=== PATIENT | female | born 1995 | race Hispanic/Latino ===

== ENCOUNTER 2019-11-07 21:23 | Emergency (ER) | payer OTHER ==
[~2019-11-07] VITALS: Ht 149.9 cm; Wt 43.1 kg
[2019-11-07] MEDS ORDERED: IBUPROFEN 400 MG TAB PO ONE (22:00)
--- NOTE | 2019-11-07 22:02 | Emergency Department Note ---
History of Present Illnes History of Present Illness Chief Complaint: Extremity Trauma/Pain History of Present Illness This is a 23 year old female, with no significant past medical history, who presents for evaluation of left ankle pain. Patient states that she was walking down 2 steps to get out of her house last night at approximate 9 PM, when she slipped, twisted her left ankle, and fell to the ground. She denies any other injury, including no head injury. Patient has had some previous injury to the left ankle, but she could not describe exactly what occurred. Patient took one ibuprofen last night, and one today at approximately 3 PM. She also applied ice to the ankle. She is having pain with weightbearing. She denies any numbness, tingling, or left lower extremity weakness. 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 Onset (how long ago): day(s) (1) Location: left ankle Quality: aching Radiation: Reports non-radiation Severity: moderate Onset quality: sudden Duration (how long): day(s) (1) Timing of current episode: constant Progression: unchanged Chronicity: new Context: Reports trauma/injury; Denies recent illness, Denies recent surgery Relieving factors: cold therapy, rest, other (elevation) Exacerbating factors: movement, other (weightbearing) Associated symptoms: Reports denies other symptoms; Denies weakness Treatments prior to arrival: NSAID Past Medical/Family History Physician Review I have reviewed the patient's past medical and family history. Any updates have been documented here. Past Medical History Recent Fever: No Clinical Suspicion of Infectio: No New/Unexplained Change in Ment: No Past Medical History: None Past Surgical History: Hernia Repair Social History Smoking Cessation: Never Smoker Alcohol Use: None Any Illegal Drug Use: No TB Exposure/Symptoms: No Physically hurt or threatened: No Family History Family history of heart diseas: No Other Any Pre-Existing Lines (PICC,: No Is patient up to date on immun: No Review of Systems Review of Systems Constitutional: Reports no symptoms EENTM: Reports no symptoms Cardiovascular: Reports no symptoms Gastrointestinal: Reports no symptoms Musculoskeletal: Reports as per HPI Integumentary: Reports no symptoms Neurological: Reports no symptoms Review of other systems: All other systems negative Physical Exam Related Data Allergies: Coded Allergies: No Known Drug Allergies (Verified Allergy, Unknown, 11/07/19) Triage Vital Signs Vital Signs Date Time Temp Pulse Resp B/P (MAP) Pulse Ox O2 Delivery O2 Flow Rate FiO2 11/07/19 21:29 98.8 84 18 104/61 99 Room Air Vital signs reviewed: Yes Physical Exam CONSTITUTIONAL Constitutional: Present well-developed, Present well-nourished HENT HENT L/R: Present left ext ear normal, Present right ext ear normal EYES Eyes: Reports PERRL, Reports conjunctivae normal NECK Neck: Present ROM normal PULMONARY Pulmonary: Present effort normal, Present breath sounds normal CARDIOVASCULAR Cardiovascular: Present regular rhythm, Present heart sounds normal, Present capillary refill normal, Present normal rate GASTROINTESTINAL GENITOURINARY SKIN Skin: Present warm, Present dry; Absent rash MUSCULOSKELETAL Musculoskeletal: Present tenderness (ttp below the left lateral malleolus, no significant edema, no crepitus, increased pain with dorsiflexion;); Absent ROM normal NEUROLOGICAL Neurological: Present alert, Present oriented x 3, Present no gross motor or sensory deficits; Absent sensory deficit PSYCHOLOGICAL Psychological: Present mood/affect normal, Present judgement normal Results Imaging Imaging results reviewed: Yes Impressions [place] [address] Patient Name: ROMAN SANTIAGO MR #: [id number] : 1995 Age/Sex: 23/F Req #: [id number] [facility] Physician: Ordered by: DIANE WAITE MD Report #: [id number] [facility] Room/Bed: Procedure: [id number] HOPD/ANKLE 3VIEW LT - HOPD Exam Date: 11/07/19 Exam Time: 2204 REPORT STATUS: Signed X-ray left ankle 3 views HISTORY: Pain. COMPARISON: None available. FINDINGS: Bones: No acute displaced fracture. Osseous alignment is within normal limits. Joints: The joint spaces are well-maintained. Soft tissues: The soft tissues appear unremarkable. IMPRESSION: No acute radiographic abnormality. Signed by: Cole Mahajan DO on 11/08/2019 12:41 AM Dictated By: COLE MAHAJAN DO Transcribed By: NILTON on 11/08/1940 COPY TO: DIANE WAITE MD~ Assessment & Plan Medical Decision Making MDM - Elevate the left leg to the level of the heart, to help with pain and swelling. - Apply ice to the left ankle, frequently throughout the next several days, to help with pain and swelling. - Take medication as directed, to help with pain and inflammation. - You may walk, as tolerated, but avoid prolonged standing and extended walking, and to your symptoms subside. - Use the air splint, for the left ankle, anterior pain has resolved. - Follow-up with Orthopedics, if your symptoms worsen or persist, for further evaluation. - Pt given contact information for follow-up with Dr. Hendricks, Orthopedics. Reassessment Reassessment time: 23:15 Reassessment Pt resting comfortably. Received Ibuprofen. Updated patient that xray is still pending. Radiology contacted, and there was some issue with the transmission of the images, so we still do not have a reading. bessy Dong., is working with IT to correct the problem. Assessment & Plan Final Impression: (1) Left ankle sprain (2) Fall Depart Disposition: HOME, SELF-CARE Last Vital Signs Date Time Temp Pulse Resp B/P (MAP) Pulse Ox O2 Delivery O2 Flow Rate FiO2 11/07/19 21:29 98.8 84 18 104/61 99 Room Air Home Meds Active Scripts Naproxen (NAPROXEN) 250 Mg Tablet, 500 MG PO BID for pain, #30 TAB 0 Refills Prov:DIANE WAITE MD 11/08/19 Medications in the ED Ibuprofen 400 mg ONCE ONCE PO ; Start 11/07/19 at 22:00; Stop 11/07/19 at 22:01; Status UNV DIANE WAITE MD Nov 07, 2019 22:02
[2019-11-07] MEDS ORDERED: IBUPROFEN 400 MG TAB ONE (22:39)
--- OUTSIDE RECORDS SUMMARY | 2019-11-07 23:27 | XMS REPORT | Clinical Summary ---
Author Author [facility] ict Organization [facility] ict Address Unknown Phone Unavailable Care Team Providers Care Supervisor Electric Name Role Phone PCP Unavailable Allergies No Known Allergies Medications End Date Status Medication Sig Dispensed Refills Start Date Active traMADol (ULTRAM) 50 mg Take 1 tablet 30 tablet 0 tabletIndications: by mouth 9 Umbilical hernia without every 6 hours obstruction and without as needed for gangrene up to 12 doses for Pain. Additional Information Patient not taking. Reported on 07/17/2019 9:49 AM 07/25/2019 erythromycin (ROMYCIN) 5 Apply 0.25cm 4 g 0 mg/gram (0.5 %) as directed 0 ophthalmic in each eye ointmentIndications: Dry at bedtime eyes, bilateral nightly for 7 days. Active Problems Problem Noted Date Dry eyes, bilateral 07/17/2019 Umbilical hernia without obstruction and without gang gurmeet 12/14/2018 Overview: Added automatically from request for scott singh [id number] Encounters Care Team Description Date Type Specialty Tommy Rivera MD Pain of right hand (Primary Dx) 10/11/2019 Emergency Emergency Medicine Davon Moscoso MD Mojica, Gioconda, MD Dry eyes, bilateral (Primary Dx) 07/17/2019 Office Visit Ophthalmology Andie Mirza PA Gill, Brijesh S, MD Umbilical hernia without obstruction and without gangrene (Primary Dx) 12/14/2018 Office Visit General Surgery Chavo Rene Jr., MD Umbilical hernia without obstruction and without gangrene (Primary Dx) 12/12/2018 Emergency Emergency Medicine after 11/06/2018 Social History Date Tobacco Use Types Packs/Day Years Used Never Smoker Smokeless Tobacco: Never Used Tobacco Cessation: Counseling Given: No Sex Assigned at Date Recorded Not on file Industry Job Start Date Occupation Not on file Not on file Not on file Travel End Travel History Travel Start No recent travel history available. Date Recorded COVID-19 Exposure Response 10/11/2019 11:06 AM CDT In the last month, have you been in contact with No / Unsure someone who was confirmed or suspected to have Coronavirus / COVID-19? Last Filed Vital Signs Reading Time Taken Comments Vital Sign 119/80 10/11/2019 12:58 PM CDT Blood Pressure 80 10/11/2019 12:58 PM CDT Pulse 36.8 C (98.2 F) 10/11/2019 12:58 PM CDT Temperature 18 10/11/2019 12:58 PM CDT Respiratory Rate 99% 10/11/2019 12:58 PM CDT Oxygen Saturation - - Inhaled Oxygen Concentration 41.7 kg (92 lb) 12/14/2018 9:30 AM CDT Weight 152.4 cm (5') 12/14/2018 9:30 AM CDT Height 17.97 12/14/2018 9:30 AM CDT Body Mass Index Plan of Treatment Care Team Description Date Type Specialty General 01/09/2020 Office Visit Ophthalmology Health Maintenance Due Date Last Done Comments Cervical Cancer Scrn (3 11/21/2015 Yrs) IMM Influenza Seasonal 12/21/2019 Oct to May (>/= 19 yrs) Procedures Comments Procedure Name Priority Date/Time Associated Diag nosis XRAY HAND 3 VIEWS MIN STAT 10/11/2019 Pain of right hand 11:54 AM CDT URINE CULTURE COLLECTION STAT 12/12/2018 KIT 9:58 PM CDT RAINBOW DRAW STAT 12/12/2018 9:58 PM CDT URINALYSIS STAT 12/12/2018 9:58 PM CDT URINALYSIS STAT 12/12/2018 9:58 PM CDT BMP POC Routine 12/12/2018 8:44 PM CDT POCT URINE DIPSTICK - STAT 12/12/2018 8:43 PM CDT CBC STAT 12/12/2018 8:41 PM CDT LIPASE STAT 12/12/2018 8:41 PM CDT LIVER PROFILE STAT 12/12/2018 8:41 PM CDT CBC/DIFF STAT 12/12/2018 8:41 PM CDT after 11/06/2018 Results * XRAY HAND 3 VIEWS MIN (10/11/2019 11:54 AM CDT) Specimen Impressions Performed At IMPRESSION: [facility] Unremarkable study of the right hand. Signed By: Therese Cantu MD, 10/11/2019 12:23 PM Narrative Performed At RIGHT HAND SERIES, 3 images. SMS DATE: 10/11/2019 11:54 AM INDICATION: Hand injury COMPARISON: None TECHNIQUE: PA, lateral and oblique radi ographs of the right hand are obtained and submitted for interpretati on. DISCUSSION: There is no fracture or malalignment. No erosive lesion or abnormal sclerosis is identified. Radiocarpal, intercarpal, carpometacarp al, metacarpophalangeal and interphalangeal joint spaces are preser elicia. Surrounding soft tissues demonstrate no abnormalities. Procedure Note Interface, Rad/Mammog In - 10/11/2019 12:28 PM CDT RIGHT HAND SERIES, 3 images. DATE: 10/11/2019 11:54 AM INDICATION: Hand injury COMPARISON: None TECHNIQUE: PA, lateral and oblique radiographs of the right hand are obtained and submitted for interpretation. DISCUSSION: There is no fracture or malalignment. No erosive lesion or abnormal sclerosis is identified. Radiocarpal, intercarpal, carpometacarpal, metacarpophalangeal and interphalangeal joint spaces are preserved. Surrounding soft tissues demonstrate no abnormalities. IMPRESSION IMPRESSION: Unremarkable study of the right hand. Signed By: Therese Cantu MD, 10/11/2019 12:23 PM Performing Organization Address City/[facility] Ph one Number SMS * Urine Culture Collection Kit (12/12/2018 9:58 PM CDT) Hold Specimen [id number] [facility] Specimen Urine Performing Organization Address City/[facility] Ph one Number [facility] [address] [place] [address] * Urinalysis (12/12/2018 9:58 PM CDT) Color Yellow Colorless, Straw, [facility] Yellow Clarity Clear Clear [facility] Spec Ellis, 1.011 1.001 - 1.035 [facility] Ur pH, Ur 7.0 5.0 - 8.0 [facility] Protein, Ur Negative Negative mg/dL [facility] Glucose, Ur Negative Negative mg/dL [facility] Ketone, Ur Negative Negative mg/dL [facility] Bilirubin, Ur Negative Negative mg/dL [facility] Nitrite, Ur Negative Negative [facility] Leukocyte Negative Negative mg/dL [facility] Blood, Ur Negative Negative mg/dL [facility] Urobilinogen, <1.0 <1.0 EU/dL [facility] Ur Specimen Urine Performing Organization Address [facility] Ph one Number [facility] [address] [place] [address] [phone] * POCT BMP POC docked device (12/12/2018 8:44 PM CDT) [facility] Sodium POC 140 136 - 145 mmol/L [facility] Potassium POC 3.6 3.5 - 5.1 mmol/L [facility] Chloride POC 104 98 - 107 mmol/L [facility] TCO2 POC 25 21 - 32 mmol/L [facility] Urea Nitrogen 7 7 - 18 mg/dL [facility] POC Creatinine POC 0.5 (L) 0.6 - 1.3 mg/dL [facility] Glucose POC 100 74 - 106 mg/dL [facility] Ionized Calcium 1.13 (L) 1.15 - 1.29 mmol/L [facility] POC GFR, Estimated >90 >=90 mL/min/1.73 m2 [facility] Specimen Blood, venous Performing Organization Address [facility] Ph one Number [facility] [address] [place], [place] [id number] [phone] * POCT Urine - (12/12/2018 8:43 PM CDT) [facility] Pass Control Negative * CBC/Diff (12/12/2018 8:41 PM CDT) [facility] WBC 5.9 4.5 - 11.0 K/uL [facility] RBC 4.63 4.20 - 5.40 M/uL [facility] Hemoglobin 14.6 12.0 - 16.0 g/dL [facility] Hematocrit 42.2 37.0 - 47.0 % [facility] MCV 91.1 82.0 - 92.0 fL [facility] MCH 31.5 27.0 - 32.0 pg [facility] MCHC 34.6 32.0 - 36.0 g/dL [facility] RDW 39.8 36.4 - 46.3 fL [facility] Platelet 193 150 - 400 K/uL [facility] Mean Platelet 11.0 9.4 - 12.4 fL [facility] Volume Percent NRBC 0.0 % [facility] Neutrophil 45.8 34.0 - 70.0 % [facility] Lymphs 45.8 20.0 - 50.0 % [facility] Monocytes 7.5 5.0 - 12.0 % [facility] Eos 0.5 (L) 0.7 - 5.0 % [facility] Basos 0.2 0.1 - 1.2 % [facility] Immature 0.2 0.0 - 0.5 % [facility] Granulocytes Neutrophils 2.68 1.56 - 6.13 K/uL [facility] (Absolute) Lymphs 2.68 1.18 - 3.74 K/uL [facility] (Absolute) Monocytes(Absol 0.44 (H) 0.24 - 0.36 K/uL [facility] octavia) Eos (Absolute) 0.03 (L) 0.04 - 0.36 K/uL [facility] Baso (Absolute) 0.01 0.01 - 0.08 K/uL [facility] Immature Grans 0.01 0.00 - 0.03 K/uL [facility] (Abs) Absolute NRBC 0.00 K/uL [facility] Specimen Blood Performing Organization Address City/State/Zipcode Ph one Number [facility] [address] [place] [address] [phone] * Liver Profile (12/12/2018 8:41 PM CDT) Total Protein 7.7 6.0 - 8.3 g/dL [facility] Bilirubin, 1.1 0.2 - 1.2 mg/dL [facility] Total Alkaline 75 34 - 104 U/L [facility] Phosphatase AST 18 13 - 39 U/L [facility] Direct 0.2 0.0 - 0.2 mg/dL [facility] Bilirubin ALT 12 7 - 52 U/L [facility] Albumin 4.9 3.7 - 5.3 g/dL [facility] Specimen Blood Performing Organization Address [facility] Ph one Number [facility] [address] [place] [address] * Lipase (12/12/2018 8:41 PM CDT) Lipase 30 11 - 82 U/L [facility] Specimen Blood Performing Organization Address [facility] Ph one Number [facility] [address] [place] [address] after 11/06/2018 Insurance Type Payer Benefit Subscriber ID Effective Phone Address Plan / Dates diet counselor'S COMPENSATION [place] xxxxxxxxx 2019- [address] [address] [place] [address] CIGNA CIGNA xxxxxxxxxxx 2019-P [phone] [address] resent [id number] [place] [address]
--- OUTSIDE RECORDS SUMMARY | 2019-11-07 23:27 | XMS REPORT | Continuity of Care Document ---
Author Author [facility] Organization [facility] Address [address] [place] [address] Phone Unavailable Care Team Providers Care Mill Operator Name Role Phone Miguel CHEN, Zach Attphys Danis CHEN, L Davon Attphys Beryl CHEN, Elvia Attphys Hermes WRIGHT, D Andie Attphys Georgina CHEN, S Gregory Attphys Edgard CHEN, Vahe Tony Attphys Payers Payer Name Policy Type Policy Number Effective Date Expiration Date S ource [employer] [place] [employer] [place] [id number] [address] xxxxxxxxx 2019 00:00:00 [facility] [employer] [facility] [employer] [employer] [employer] EMPLOYEE PLANxxxxxxxxxxx [id number][address] [address] xxxxxxxxxxx 2019 00:00:00 [facility] Problems Condition Name Condition Details Condition Category Status Onset Date Resolution Date Last Treatment Date Treating Clinician Comments Source Dry eyes, bilateral Dry eyes, bilateral Disease Active 2019-07-17 00:00 :00 [facility] Umbilical hernia without obstruction and without gangr audrey Umbilical hernia without obstruction and without gangrene Disease Active 2018-12-14 00:00: 00 Overview: Added automatically from request for surgery [id number] [facility] Allergies, Adverse Reactions, Alerts This patient has no known allergies or adverse reactions. Social History Social Habit Start Date Stop Date Quantity Comments Source Sex Assigned At [facility] Exposure to SARS-CoV-2 (event) Not sure [facility] Smoking Status Start Date Stop Date Source Never smoker [facility] Medications Ordered Medication Name Filled Medication Name Start Date Stop Da te Current Medication? Ordering Clinician Indication Dosage Frequency Signature (SIG) Comments Components Source erythromycin (ROMYCIN) 5 mg/gram (0.5 %) ophthalmic ointment 2019-07-17 00:00:00 2019-07-25 23:59:00 No Dry eyes, bilateral Apply 0.25cm as directed in each eye at bedtime nightly for 7 days. [facility] traMADol (ULTRAM) 50 mg tablet 2018-12-14 00:00:00 Yes Umbilical hernia without obstruction and without gangrene 50mg Take 1 tablet by mouth every 6 hours as needed for up to 12 doses for Pain. [facility] Vital Signs Vital Name Observation Time Observation Value Comments Source Systolic blood pressure 2019-10-11 12:58:00 119 mm[Hg] [facility] Diastolic blood pressure 2019-10-11 12:58:00 80 mm[Hg] [facility] Heart rate 2019-10-11 12:58:00 80 /min [facility] Body temperature 2019-10-11 12:58:00 36.78 Monse Duong is [facility] Respiratory rate 2019-10-11 12:58:00 18 /min [facility] Oxygen saturation in Arterial blood by Pulse oximetry 10-10 12:58:00 99 /min [facility] Body height 2018-12-14 09:30:00 152.4 cm [facility] Body weight 2018-12-14 09:30:00 41.731 kg [facility] BMI 2018-12-14 09:30:00 17.97 kg/m2 [facility] Procedures Procedure Date / Time Performed Performing Clinician Sourc e XRAY HAND 3 VIEWS MIN 2019-10-11 11:54:34 Colette Li [facility] URINALYSIS 2018-12-12 21:58:00 Andie Mirza [facility] URINALYSIS 2018-12-12 21:58:00 Andie Mirza [facility] RAINBOW DRAW 2018-12-12 21:58:00 Chavo Rene [facility] URINE CULTURE COLLECTION KIT 2018-12-12 21:58:00 Chavo Rene [facility] BMP POC 2018-12-12 20:44:00 Unknown, Provider [facility] POCT URINE DIPSTICK - 2018-12-12 20:43:00 Beena Duncan [facility] CBC/DIFF 2018-12-12 20:41:00 Janette Duncan [facility] LIVER PROFILE 2018-12-12 20:41:00 Janette Duncan [facility] LIPASE 2018-12-12 20:41:00 Janette Duncan [facility] CBC 2018-12-12 20:41:00 Janette Duncan [facility] Plan of Care Planned Activity Planned Date Details Comments Source Future Scheduled Test 2019-12-21 00:00:00 IMM Influenza Seas onal Dec to May (>/= 19 yrs) [code = IMM Influenza Seasonal Dec to May (>/= 19 yrs)] [facility] Future Scheduled Test 2015-11-21 00:00:00 Screening for oralia gnant neoplasm of cervix (procedure) [code = 987995306] [facility] Encounters Start Date/Time End Date/Time Encounter Type Admission Type [facility] Care Department Encounter ID Source 2020-01-09 00:00:00 2020-01-09 00:00:00 Outpatient [facility] [id number] [facility] 2019-10-11 11:42:03 2019-10-11 11:42:03 Emergency [facility] [id number] [facility] 2019-10-11 11:09:02 2019-10-11 11:09:02 Emergency [facility] [id number] [facility] 2019-07-17 09:42:27 2019-07-17 09:42:27 Outpatient [facility] [id number] [facility] 2019-06-16 00:00:00 2019-06-16 00:00:00 Outpatient [facility] [id number] [facility] 2018-12-22 00:00:00 2018-12-22 00:00:00 Outpatient [facility] [id number] [facility] 2018-12-14 09:30:01 2018-12-14 09:30:01 Outpatient [facility] [id number] [facility] 2018-12-14 00:00:00 2018-12-14 00:00:00 Outpatient [facility] [id number] [facility] 2018-12-12 20:52:16 2018-12-12 20:52:16 Emergency [facility] [id number] [facility] 2016-08-09 13:46:49 2016-08-09 13:46:49 Emergency [facility] [id number] [facility] Results Test Description Test Time Test Comments Results Result Comments Source XRAY HAND 3 VIEWS MIN 2019-10-11 12:23:29 IMPRES OMAIRA: Unremarkable study of the right hand. Signed By: Therese Cantu MD, 10/11/2019 12:23 PM Interface, Rad/Mammog In - 10/11/2019 12:28 PM CDTRIGHT HAND SERIES, 3 images.DATE: 10/11/2019 11:54 AMINDICATION: Hand injuryCOMPARISON: NoneTECHNIQUE: PA, lateral and oblique radiographs of the right hand areobtained and submitted for interpretation.DISCUSSION: There is no fracture or malalignment. No erosive lesion or abnormal sclerosis is identified. Radiocarpal, intercarpal, carpometacarpal, metacarpophalangeal andinterphalangeal joint spaces are preserved. Surrounding soft tissues demonstrate no abnormalities.IMPRESSIONIMPRESSION:Unremarkable study of the right hand.Signed By: Therese Cantu MD, 10/11/2019 12:23 PM [facility] Urine Culture Collection Kit 2018-12-13 00:00:00 Test Item Hold Specimen (test code = 57259545) [id number] [id number] 22:22:00* Test Item Value Reference Range Interpretation Comments Color (test code = 51238675) Yellow Colorless, Straw, Yellow Clarity (test code = 21043392) Clear Clear Spec [place], Ur (test code = 26747153) 1.011 1.001-1.035 pH, Ur (test code = 04873927) 7.0 5.0-8.0 Protein, Ur (test code = 88840389) Negative Negative mg/dL Glucose, Ur (test code = 51964406) Negative Negative mg/dL Ketone, Ur (test code = 00709871) Negative Negative mg/dL Bilirubin, Ur (test code = 10904702) Negative Negative mg/dL Nitrite, Ur (test code = 69981726) Negative Negative Leukocyte (test code = 67624833) Negative Negative mg/dL Blood, Ur (test code = 04498692) Negative Negative mg/dL Urobilinogen, Ur (test code = 00482194) <1.0 <1.0 EU/dL Lab Interpretation (test code = 44559-5) Normal [id number] 21:23:00* Test Item Value Reference Range Interpretation Comments Lipase (test code = 30409284) 30 U/L 11-82 Lab Interpretation (test code = 53606-5) Normal [facility] [id number] 21:23:00* Test Item Value Reference Range Interpretation Comments Bilirubin, Total (test code = 2885-2) 1.1 mg/dL 0.2-1.2 Alkaline Phosphatase (test code = 07248584) 75 U/L 34-104 AST (test code = 27504216) 18 U/L 13-39 Direct Bilirubin (test code = 1968-7) 0.2 mg/dL 0-0.2 ALT (test code = 62799739) 12 U/L 7-52 Albumin (test code = 92512-9) 4.9 g/dL 3.7-5.3 Lab Interpretation (test code = 62121-8) [id number] 21:03:00* Test Item Value Reference Range Interpretation Comments WBC (test code = 6690-2) 5.9 K/uL 4.5-11 RBC (test code = 789-8) 4.63 4.20- 5.40 M/uL Hemoglobin (test code = 718-7) 14.6 g/dL 12-16 Hematocrit (test code = 4544-3) 42.2 % 37-47 MCV (test code = 787-2) 91.1 fL 82-92 MCH (test code = 785-6) 31.5 pg 27-32 MCHC (test code = 786-4) 34.6 g/dL 32-36 RDW (test code = 31854-8) 39.8 fL 36.4-46.3 Platelet (test code = 777-3) 193 K/uL 150-400 Mean Platelet Volume (test code = 59693-7) 11.0 fL 9.4-12.4 Percent NRBC (test code = 99512707) 0.0 % Neutrophil (test code = 770-8) 45.8 % 34-70 Lymphs (test code = 736-9) 45.8 % 20-50 Monocytes (test code = 5905-5) 7.5 % 5-12 Eos (test code = 713-8) 0.5 % 0.7-5 L Basos (test code = 706-2) 0.2 % 0.1-1.2 Immature Granulocytes (test code = 04538513) 0.2 % 0-0.5 Neutrophils (Absolute) (test code = 58557397) 2.68 K/uL 1.56-6.1 3 Lymphs (Absolute) (test code = 95664469) 2.68 K/uL 1.18-3.74 Monocytes(Absolute) (test code = 27159353) 0.44 K/uL 0.24-0.36 H Eos (Absolute) (test code = 04497100) 0.03 K/uL 0.04-0.36 L Baso (Absolute) (test code = 60415626) 0.01 K/uL 0.01-0.08 Immature Grans (Abs) (test code = 81325055) 0.01 K/uL 0-0.03 Absolute NRBC (test code = 72548878) 0.00 K/uL Lab Interpretation (test code = 22878-8) Abnormal [facility] BMP POC docked [id number] 20:48:00* Test Item Value Reference Range Interpretation Comments Sodium POC (test code = 07357932) 140 mmol/L 136-145 Potassium POC (test code = 43025827) 3.6 mmol/L 3.5-5.1 Chloride POC (test code = 10616968) 104 mmol/L 98-107 TCO2 POC (test code = 73602345) 25 mmol/L 21-32 Urea Nitrogen POC (test code = 38896692) 7 mg/dL 7-18 Creatinine POC (test code = 97345584) 0.5 mg/dL 0.6-1.3 L Glucose POC (test code = 58365964) 100 mg/dL 74-106 Ionized Calcium POC (test code = 92785303) 1.13 mmol/L 1.15-1.29 L GFR, Estimated (test code = 15170342) >90 >=90 mL/min/1.73 m2 Lab Interpretation (test code = 72482-1) Abnormal [facility] Urine - [id number] 20:43:00* Test Item Value Reference Range Interpretation Comments Control (test code = 7172) Pass (test code = 7173) Negative Lab Interpretation (test code = 58649-6) Normal [facility]
--- NOTE | 2019-11-07 23:52 | NUR ---
AWAITING XR RESULTS
--- NOTE | 2019-11-08 00:45 | Diagnostic Imaging Report ---
X-ray left ankle 3 views HISTORY: Pain. COMPARISON: None available. FINDINGS: Bones: No acute displaced fracture. Osseous alignment is within normal limits. Joints: The joint spaces are well-maintained. Soft tissues: The soft tissues appear unremarkable. IMPRESSION: No acute radiographic abnormality. Signed by: Cole Mahajan DO on 11/08/2019 12:41 AM
[2019-11-08] MEDS ORDERED: NAPROXEN250 MG PO (00:57)
[2019-11-08 01:14] VITALS: BP 102/60
== END 2019-11-08 01:14 | disposition home or self-care (01) ==
LOC: FSED 21:41
DX: S93.402A Sprain of unspecified ligament of left ankle, initial encounter (principal); X50.1XXA Overexertion from prolonged static or awkward postures, initial encounter; Y93.01 Activity, walking, marching and hiking; Y92.008 Other place in unspecified non-institutional (private) residence as the place of occurrence of the external cause
CPT/HCPCS: 99284